=== PATIENT | male | born 1965 | race Caucasian/White ===

== ENCOUNTER 2022-08-04 09:04 | Day surgery (SDC) | payer OTHER ==
[~2022-08-04] VITALS: Ht 182.9 cm; Wt 96.8 kg
[2022-08-04] VITALS (16 sets, daily range): BP systolic 72–148; BP diastolic 47–85
[~2022-08-04 09:04] MED LIST: BENADRYL25 MG PO; EZALLOR SPRINKL10 MG PO; GABA100 PO; IBUP800 PO; LISI20 PO; METHOCARBAMOL PO; Norco 10-325 T1 EACH PO; Nortriptyline H75 MG PO; OMEP20ER PO; PRAZ1 PO
--- NOTE | 2022-08-04 14:16 | NUR ---
ARRIVAL TO UNIT PODO LTHA PT A&O X4, PRINEO DRESSING C/D/I. PT ON 2L NC SATTING ABOVE 95%. PT HAD SPINAL, ABLE TO MOVE TOES AND FEET. PT STATES "HAS SOME PINCHING". MEDICATED PER EMAR. PT HAS POLAR CUBE TO SURGICAL SITE. NO FUTHER QUESTIONS AT THIS TIME. CALL LIGHT WITHIN REACH.
--- NOTE | 2022-08-04 18:04 | NUR ---
SHIFT SUMMARY POD0 LTHA PT A&O X4, RESPONDS APPROPRIATELY. PT HAS PRINEO DRESSING, C/D/I. PT HAD SPINAL, HAS SESATION IN LOWER EXTREMITIES. ABLE TO MOVE AND GET UP WITH THERAPY. AMBULATES WITH WALKER AND NURSE ASST. PT HAS NOT VOIDED YET, WILL BLADDER SCAN AND SEE IF PT HAS TO PEE. PT COMPLAINS OF PAIN, MEDICATED PER EMAR.
[2022-08-05 00:20] VITALS: BP 113/72
[2022-08-05 04:22] VITALS: BP 122/73
--- NOTE | 2022-08-05 04:46 | NUR ---
SUMMARY: PT A/OX4, IS PLEASANT AND COOPERATIVE W/CARE AND CALLS APPROPRIATELY TO SPECIFY NEEDS. HE'S POD 1 S/P LTHA W/PRINEO DX REMAINING C/D/I. POLAR PACK IN PLACE BUT SLIGHT SWELLING AND BRUISING OBSERVED TO SITE. HE REQUIRED PRN ROXICODONE X2 TABS AND DILAUDID 0.5MG IV IN ADDITION TO SCHEDULED PAIN MEDS TO ACHIEVE TOLERABLE PAIN RELIEF. HE WAS UP W/1PA, FWW AND GB AND USED URINAL IN BED AD NICHOLAS. PT REPORTS NUMBNESS TO CENTER OF INCISION LINE W/SENSATION INTACT TO TOP/BASE, MOVEMENT AND SENSATION WNL TO LLE OTHERWISE. NO ACUTE CHANGES, VSS/AFEBRILE. WCTM AND REPORT TO DAY RN.
[2022-08-05 05:17] LABS: BASOPHILS ABSOLUTE AUTO 0.01 K/mm3 (0.00-0.23); BASOPHILS PERCENT AUTO 0 % (0-2); EOSINOPHILS PERCENT AUTO 0 % (0-6); Hematocrit 31.9 % (37.0-53.0); Hemoglobin 10.8 g/dL (13.5-17.5); IMMATURE GRAN ABSOLUTE AUTO 0.04 K/mm3 (0.00-0.10); IMMATURE GRAN PERCENT AUTO 0 % (0-1); LYMPHOCYTES ABSOLUTE AUTO 0.94 K/mm3 (0.84-5.20); LYMPHOCYTES PERCENT AUTO 7 % (21-46); MONOCYTES ABSOLUTE AUTO 0.98 K/mm3 (0.16-1.47); MONOCYTES PERCENT AUTO 8 % (4-13); Mean Corpuscular HGB 32.4 pg (26.0-34.0); Mean Corpuscular HGB Conc 33.9 g/dL (31.5-36.5); Mean Corpuscular Volume 96 fL (80-100); Mean Platelet Volume 9.9 fL (9.1-12.4); NEUTROPHILS ABSOLUTE AUTO 10.74 K/mm3 (1.96-9.15); NEUTROPHILS PERCENT AUTO 85 % (41-73); Platelet Count 196 K/mm3 (150-400); RDW Coefficient Variation 12.7 % (11.7-14.2); RDW Standard Deviation 44.7 fL (35.1-46.3); Red Blood Cell Count 3.33 M/mm3 (4.30-5.90); White Blood Cell Count 12.71 K/mm3 (4.00-11.30)
[2022-08-05 05:54] LABS: Bun/Creatinine Ratio 19.9 (12.0-20.0); Calcium, Blood 9.1 mg/dL (8.5-10.1); Creatinine, Blood 0.9 mg/dL (0.60-1.20); Potassium, Blood 3.9 mmol/L (3.5-5.5)
[2022-08-05 07:24] VITALS: BP 140/83
[2022-08-05] MEDS ORDERED: ASPI81CH PO (08:22)
[2022-08-05] MEDS ORDERED: ACET500 PO (08:22)
[2022-08-05] MEDS ORDERED: OXYC5 PO (08:23)
--- NOTE | 2022-08-05 10:30 | NUR ---
DISCHARGE SUMMARY POD1 LTHA PT A&O X4, PT UP IN CHAIR, WORKED WITH THERAPY. ABLE TO AMBULATE WITH WALKER AND NURSE ASST. AQUACEL DRESSING PALCED OVER PRINEO, DRESSING C/D/I. PT HAS FULL SENSATION. PT HAS NO URGE TO VOID RIGHT NOW. ABLE TO VOID THROUGHOUT THE NIGHT. DISCHARGE INSTRUCTIONS WENT OVER WIHT PT. NO QUESTIONS AT THIS TIME. IV TAKEN OUT. WAITNG FOR RIDE.
--- NOTE | 2022-08-05 11:46 | NUR ---
UPDATE PT TAKEN OUT BY WHEELCHAIR. ALL BELONGINGS WITH PT.
== END 2022-08-05 11:49 | disposition home or self-care (01) ==
LOC: ORSCMMR 09:04 → ORD 10:45 → ORSCMMR 10:45 → SURS 13:54 → ORSCMMR 08-05 11:49
PROVIDERS: Orthopaedic Surgery
PROC: 0SRB0JA Replacement of Left Hip Joint with Synthetic Substitute, Uncemented, Open Approach (ICD-10-PCS; principal; 2022-08-04 10:45)
DX: M16.12 Unilateral primary osteoarthritis, left hip (principal); M87.9 Osteonecrosis, unspecified; I10 Essential (primary) hypertension; K21.9 Gastro-esophageal reflux disease without esophagitis; F43.10 Post-traumatic stress disorder, unspecified; F32.A Depression, unspecified; Z79.899 Other long term (current) drug therapy
CPT/HCPCS: 36415; 72170; 80048; 83735; 85025; 97110; 97116; 97162; A9270; C1776; J0171; J0690; J0735; J1100; J1170; J1885; J2250; J2370; J2405; J2704; J2795; J3010; J7120

== ENCOUNTER 2022-11-17 06:24 | Day surgery (SDC) | payer OTHER ==
[~2022-11-17] VITALS: Ht 182.9 cm; Wt 97.8 kg
[2022-11-17] VITALS (16 sets, daily range): BP systolic 110–141; BP diastolic 60–93
[~2022-11-17 06:24] MED LIST changes: +ACET500 PO; +ASPI81CH PO; +OXYC5 PO
--- NOTE | 2022-11-17 07:22 | NUR ---
History, Chart, Medications and Allergies reviewed before start of procedure. Lungs clear T/O to Auscultation. Patient confirms NPO status and agrees with scheduled surgery. Pre-Op teaching done. Pt verbalizes understanding. Patient reports completing Chlorhexadine shower X2 prior to admission to hospital. PT AMB TO BATHROOM WITH USE OF HIS CANE TO VOID PRIOR TO PROCEDURE.
--- NOTE | 2022-11-17 11:06 | NUR ---
PATIENT ARRIVED ONTO THE UNIT TODAY AT 1100. POD 0 RIGHT TOTAL HIP PATIENT IS A&OX4. VS ARE WNL AND IS ON RA. PATIENT HAD A SPINAL DURING THE PROCEDURE AND HE REPORTS "I FEEL SLIGHT PRESSURE ON MY FEET AND I'M ABLE TO MOVE MY TOES BUT STILL NOT MUCH FEELING". HE DENIES PAIN AT THIS TIME BUT IS AWARE OF PRN PAIN MEDICATIONS. HIS RIGHT HIP HAS A PRIMEO DRESSING THAT IS C/D/I WITH POLAR PACK IN PLACE. PEDAL PULSES ARE STRONG AND WARM TO TOUCH. HE IS TOLERATING SMALL AMOUNTS OF PO INTAKE AT THIS TIME. HE IS LAYING IN BED WITH CALL LIGHT IN REACH.
--- NOTE | 2022-11-17 14:46 | NUR ---
SHIFT SUMMARY: POD 0 RIGHT TOTAL HIP PATIENT IS A&OX4. VS ARE WNL AND IS ON RA. PATIENT REPORTS HAVING FULL SENSATION TO BLE'S AND IS ABLE TO MOVE ALL FINGERS AND TOES WHEN ASKED. PAIN IS MANAGED WITH PO OXY, IV TORDADOL, AND 0.5MG OF IV DILAUDID FOR BREAK THROUGH. HIS RIGHT HIP HAS PRIMEO DRESSING THAT IS OPEN TO AIR AND IS C/D/I. PATIENTS PEDAL PULSES ARE STRONG AND WARM TO TOUCH. HE IS TOLERATING PO INTAKE. PATIENT IS LAYING IN BED WITH CALL LIGHT IN REACH AND PHYSICAL THERAPY IS IN THE ROOM AT THIS TIME. POLAR PACK IN PLACE.
[2022-11-18 00:52] VITALS: BP 133/69
[2022-11-18 03:52] LABS: BASOPHILS ABSOLUTE AUTO 0.02 K/mm3 (0.00-0.23); BASOPHILS PERCENT AUTO 0 % (0-2); EOSINOPHILS PERCENT AUTO 0 % (0-6); Hematocrit 32.2 % (37.0-53.0); IMMATURE GRAN ABSOLUTE AUTO 0.03 K/mm3 (0.00-0.10); IMMATURE GRAN PERCENT AUTO 0 % (0-1); LYMPHOCYTES ABSOLUTE AUTO 0.58 K/mm3 (0.84-5.20); LYMPHOCYTES PERCENT AUTO 6 % (21-46); MONOCYTES ABSOLUTE AUTO 0.85 K/mm3 (0.16-1.47); MONOCYTES PERCENT AUTO 8 % (4-13); Mean Corpuscular HGB 32.2 pg (26.0-34.0); Mean Corpuscular HGB Conc 34.2 g/dL (31.5-36.5); Mean Corpuscular Volume 94 fL (80-100); Mean Platelet Volume 9.7 fL (9.1-12.4); NEUTROPHILS ABSOLUTE AUTO 8.81 K/mm3 (1.96-9.15); NEUTROPHILS PERCENT AUTO 86 % (41-73); Platelet Count 161 K/mm3 (150-400); RDW Coefficient Variation 13.6 % (11.7-14.2); Red Blood Cell Count 3.42 M/mm3 (4.30-5.90); White Blood Cell Count 10.29 K/mm3 (4.00-11.30)
[2022-11-18 04:11] LABS: Magnesium, Blood 1.8 mg/dL (1.6-2.4)
[2022-11-18 04:12] LABS: Bun/Creatinine Ratio 12.5 (12.0-20.0); Calcium, Blood 8.4 mg/dL (8.5-10.1); Creatinine, Blood 0.88 mg/dL (0.60-1.20); Potassium, Blood 4.4 mmol/L (3.5-5.5)
[2022-11-18 05:20] VITALS: BP 124/69
--- NOTE | 2022-11-18 06:21 | NUR ---
SHIFT SUMMARY POD #1 R.NAYA PT IS A&O X4, ON RA, VSS, TOLERATING PO INTAKE, VOIDING WNL. DRSG REMAINS C/D/I, POLAR PACK IN PLACE, SWELLING NOTED, CAP REFILL WNL, PAIN MANAGED PER EMAR, PT STATES "THIS HURTS WAY WORSE THAN THE LAST ONE SHE DID" PT ENC TO AMBULATE, HE WALKED TO THE BATHROOM X1, PT SLEPT IN HIS CHAIR PER HIS REQUEST, WCTM & REPORT TO DAY RN, RESTING IN CHAIR, RESP UNLABORED, CALL LIGHT IN REACH.
--- NOTE | 2022-11-18 11:11 | NUR ---
DISCHARGE SUMMARY PT A&OX4, VSS/RA, HEATHER PO, PAIN MANAGEMENT DIFFICULT-EDU PT, VOIDING, AMB SBA FWW/GB, IV DC'D, POD1 R NAYA, DRESSING CDI. DC INS PROVIDED. PT REP UNDERSTANDING THOSE INSTRUCTIONS. LEFT FLOOR VIA WC WITH BUSINESS DIVISION CHAIR TO GO HOME WITH FRIEND, WITH ALL PERSONAL POSSESSIONS INCLUDING DC PACKET.
== END 2022-11-18 11:09 | disposition home or self-care (01) ==
LOC: ORSCMMR 06:24 → ORD 07:30 → ORSCMMR 07:30 → SURS 10:49 → ORSCMMR 11-18 11:09 → ORD 12-22 10:45
PROVIDERS: Orthopaedic Surgery
PROC: 0SR90JA Replacement of Right Hip Joint with Synthetic Substitute, Uncemented, Open Approach (ICD-10-PCS; principal; 2022-11-17 07:30)
DX: M87.00 Idiopathic aseptic necrosis of unspecified bone (principal); M16.11 Unilateral primary osteoarthritis, right hip; Z96.642 Presence of left artificial hip joint; K21.9 Gastro-esophageal reflux disease without esophagitis; F43.10 Post-traumatic stress disorder, unspecified; F32.A Depression, unspecified; Z79.899 Other long term (current) drug therapy
CPT/HCPCS: 36415; 72170; 80048; 83735; 85025; 97110; 97116; 97162; A9270; C1713; C1776; J0171; J0690; J0735; J1170; J1200; J1885; J2371; J2704; J2795; J3010; J7120